=== PATIENT | male | born 1955 | race Caucasian/White ===

== ENCOUNTER 2024-10-03 08:18 | Emergency (ER) | payer OTHER, SELFPAY ==
[2024-10-03 08:29] VITALS: BP 136/64; PULSE 82; RESP 16; TEMP 36.5; O2SAT 98
--- NOTE | 2024-10-03 08:51 | ED.SKABFB ---
HPI - Skin/Abscess/Foreign Bdy General Chief complaint: Skin/Abscess/Foreign Body Stated complaint: lump in throat Time Seen by Provider: 10/03/24 08:40 Source: patient and RN notes reviewed Mode of arrival: ambulatory Limitations: no limitations History of Present Illness HPI narrative: 68-year-old male presents [facility] complaining redness and swelling to his neck. Patient please sent and bit him in his sleep. Patient reports having a pruritic rash to the lower part of his anterior neck. Patient has not taken anything to help with symptoms because he was not sure if it would react with any of his medications he currently takes. Patient has a history of hypertension and hyperlipidemia. Patient denies any throat swelling, face swelling, difficulty breathing, wheezing, difficulty clearing secretions, fevers, upper respiratory symptoms, nausea, vomiting, or any other symptoms. Related Data Home Medications ?Medication ?Instructions ?Recorded ?Confirmed ?Last Taken ?Type fluticasone propionate 50 intranasal 10/03/24 Unknown History mcg/actuation nasal spray,suspension lisinopril 20 mg tablet mg 10/03/24 Unknown History montelukast 10 mg tablet mg 10/03/24 Unknown History rosuvastatin 20 mg tablet mg 10/03/24 Unknown History tadalafil 20 mg tablet mg 10/03/24 Unknown History Allergies Allergy/AdvReac Type Severity Reaction Status Date / Time No Known Allergies Allergy Verified 10/03/24 08:21 Review of Systems Review of Systems: CONSTITUTIONAL: Denies fever, chills, or sweats. EYES: Denies visual changes, redness, or discharge. ENT: Denies rhinorrhea, congestion, sore throat, or otalgia. CARDIOVASCULAR: Denies chest pain, palpitations, or edema. RESPIRATORY: Denies cough or dyspnea. GASTROINTESTINAL: Denies abdominal pain, nausea, vomiting, or diarrhea. GENITOURINARY: Denies dysuria or hematuria. SKIN: Positive for rash and itching. MUSCULOSKELETAL: Denies back pain, joint pain, or myalgia. NEUROLOGIC: Denies headache, numbness, or weakness. PSYCHIATRIC: Denies anxiety or depression. All other systems reviewed are negative, except as documented in HPI. PMFSH Comments At the time of my signature, I reviewed and agree with the nursing past medical, surgical, social, and family history. There is no relevant family history pertinent to the patient complaint. Exam Narrative: GENERAL: This is a well-nourished, well-developed adult, in no apparent distress. They are non ill-appearing, nontoxic appearing. HEAD: normocephalic, atraumatic. EYES: Sclera clear/white. Conjunctiva normal. Vision is grossly intact. Extraocular movements intact EARS: External ears normal Hearing grossly intact. NOSE: External nose normal THROAT: Mucous membranes moist, posterior pharynx clear, without erythema or swelling. Uvula midline. NECK: Neck supple, non-tender without lymphadenopathy, masses or thyromegaly. CARDIOVASCULAR: Regular rate and rhythm without murmurs, gallops, or rubs. RESPIRATORY: Clear to auscultation. Breath sounds equal bilaterally. No wheezes, rales, or rhonchi. SKIN: There is a pruritic erythematous, macular rash with a center papule to the anterior lower neck. Surrounding erythema around the papule extending to the upper chest. There is no induration, area of fluctuance, exudate, or tenderness. NEURO: awake, alert, and oriented to person, place and time. There were no obvious focal neurologic abnormalities. EXTREMITIES: No joint tenderness, effusion, or edema noted. Course Course Emergency Course: Portions of this record may have been created with voice recognition software Level of Care: Express Care Visit Vital Signs Vital signs: Vital Signs Temperature 97.7 F 10/03/24 08:29 Pulse Rate 82 10/03/24 08:29 Respiratory Rate 16 10/03/24 08:29 Blood Pressure 136/64 10/03/24 08:29 Pulse Oximetry 98 10/03/24 08:29 Oxygen Delivery Room Air 10/03/24 08:29 Temperature 97.7 F 10/03/24 08:29 Pulse Rate 82 10/03/24 08:29 Respiratory Rate 16 10/03/24 08:29 Blood Pressure 136/64 10/03/24 08:29 Pulse Oximetry 98 10/03/24 08:29 Oxygen Delivery Room Air 10/03/24 08:29 Reviewed MDM - Skin/Abscess/Foreign Bdy MDM Narrative Medical decision making narrative: Likely patient has mild allergic reaction to an insect bite. Will prescribe triamcinolone cream and recommend [id number] therapy to help with symptoms. Discussed physical exam findings. Advised supportive measures and signs/symptoms to go to the ER. Pt is appropriate for outpt treatment and f/u. Differential Diagnosis Differential diagnosis: Likely urticaria, cellulitis, insect bites and contact dermatitis Critical Care Time Critical Care Time Critical Care Time: No Discharge Plan Discharge Clinical Impression: Allergic reaction to insect bite Insect bite Qualifiers: Encounter type: initial encounter Site of insect bite: unspecified part of neck Qualified Code(s): S10.96XA - Insect bite of unspecified part of neck, initial encounter Patient Disposition: Home Condition: Stable Instructions: Insect Bite or Sting (ED), General Allergic Reaction (ED) Additional Instructions: Please use the triamcinolone cream as directed. It Is likely you have and allergic reaction to a bug bite. Please wash the area with mild soap and water. May apply ice or cold packs to help with swelling 20 minutes at a time. You may also use calamine lotion to help with itchiness. Take Zyrtec and Pepcid daily to help with itching and allergy symptoms. You may take Benadryl at night. Follow-up with PCP in 3-5 days. If the swelling gets worse, skin becomes hot to touch or painful, you develop green or yellow discharge, fevers, breathing problems, or swelling to throat face, or any other concerns please go to the ER immediately. Patient Language: [place] Prescriptions: New triamcinolone acetonide 0.1 % cream 1 applic topical BID 5 Days Qty: 15 0RF No Action lisinopril 20 mg tablet montelukast 10 mg tablet fluticasone propionate 50 mcg/actuation spray,suspension INTRANASAL rosuvastatin 20 mg tablet tadalafil 20 mg tablet Follow-up/Referrals: Nick Wright MD [Primary Care Provider] - Time of Disposition: 08:50
== END 2024-10-03 08:55 | disposition home or self-care (01) ==
PROVIDERS: PCP Internal Medicine
DX: S10.96XA Insect bite of unspecified part of neck, initial encounter (principal); W57.XXXA Bitten or stung by nonvenomous insect and other nonvenomous arthropods, initial encounter; I10 Essential (primary) hypertension; E78.5 Hyperlipidemia, unspecified
CPT/HCPCS: 99203; G0463

== ENCOUNTER 2024-12-08 13:20 | Emergency (ER) | payer OTHER, SELFPAY ==
[2024-12-08 13:29] VITALS: BP 192/81; PULSE 91; RESP 16; TEMP 37.2; O2SAT 100
[2024-12-08 13:44] LABS: EDUAAPPEAR Clear; EDUABILI Negative (Negative); EDUABLOOD 1+ (Negative); EDUACOLOR1 Yellow; EDUAGLUCOSE Negative (Negative); EDUAKETONE Negative (Negative); EDUALEUKO Negative (Negative); EDUANITRATE Negative (Negative); EDUAPH 7.0; EDUAPROTEIN Negative (Negative); EDUASPGRAVITY 1.005; EDUAUROBILI 0.2
--- NOTE | 2024-12-08 14:00 | ED.MALEGU ---
HPI - Male Genitourinary General Chief complaint: Urogenital-Male Stated complaint: blood in urine Time Seen by Provider: 12/08/24 14:00 Source: patient, RN notes reviewed and old records reviewed Mode of arrival: ambulatory Limitations: no limitations History of Present Illness HPI Narrative: 69-year-old male presents to the [facility] with concerns of blood in his urine as well as a spot in his underwear. Happened 2 times today. Patient denies any history of prostate issues, kidney issues, STI's Denies any new back pain or abdominal pain. Denies fever Related Data Home Medications ?Medication ?Instructions ?Recorded ?Confirmed ?Last Taken ?Type fluticasone propionate 50 intranasal 10/03/24 Unknown History mcg/actuation nasal spray,suspension lisinopril 20 mg tablet mg 10/03/24 Unknown History montelukast 10 mg tablet mg 10/03/24 Unknown History rosuvastatin 20 mg tablet mg 10/03/24 Unknown History tadalafil 20 mg tablet mg 10/03/24 Unknown History Allergies Allergy/AdvReac Type Severity Reaction Status Date / Time No Known Allergies Allergy Verified 12/08/24 13:41 Review of Systems Review of Systems: All systems reviewed & are unremarkable except as noted in HPI and below Constitutional: Constitutional: Reports no additional constitutional complaints ENT: Reports system reviewed and no additional complaints, except as documented Cardiovascular: Cardiovascular: Reports no additional cardiovascular complaints, Denies chest pain and Denies dyspnea Respiratory: Respiratory: Reports no additional respiratory complaints, Denies chest congestion, Denies cough and Denies dyspnea Genitourinary: Genitourinary: Reports as per HPI Musculoskeletal: Musculoskeletal: Reports no additional musculoskeletal complaints Integumentary/Breasts: Skin/Breast: Reports system reviewed and no additional complaints, except as docu PMFSH Comments At the time of my signature, I reviewed and agree with the nursing past medical, surgical, social, and family history. There is no relevant family history pertinent to the patient complaint. Exam Const: General: cooperative, healthy appearing, comfortable, no acute distress, well developed, alert and well nourished Nutritional Appearance: well nourished Orientation/consciousness: patient oriented x3 Limitations: no limitations HENMT: Head: normal to inspection Mouth: Yes Normal oral and palatal mucosa present, Yes lip normal, Yes tongue normal and Yes moist mucous membranes Eyes: General: appearance normal, both eyes and all related structures Alignment and Position: alignment normal Neck: Neck: normal visual inspection, full ROM, no lymphadenopathy and no meningeal signs Chest: Chest palpation & inspection: normal inspection of the chest Resp: Effort & Inspection: normal respiratory effort and able to speak in complete sentences Auscultation: clear to auscultation bilaterally, no crackles, no rales, no rhonchi and no wheezes Cardio: Rate: regular rate Back/Spine/Pelvis: Back: No ecchymosis and No back tenderness Skin: General skin exam: normal color and no rashes or lesions noted Neuro: General: patient oriented x3, gait normal, moves all extremities and no meningeal signs Cognition (Neuro): normal cognition Speech: normal speech Gait exam (Neuro): Normal gait present Extrem: General: normal to inspection, full ROM, capillary refill normal and normal gait Psych: Appearance: grossly normal and well kempt Mental Status: mental status grossly normal Speech and movement: Normal speech and movement present and Clear speech present Affect: normal affect Attitude: cooperative Course Course Level of Care: Express Care Visit Vital Signs Vital signs: Vital Signs Temperature 99.0 F 12/08/24 13:29 Pulse Rate 91 12/08/24 13:29 Respiratory Rate 16 12/08/24 13:29 Blood Pressure 192/81 H 12/08/24 13:29 Pulse Oximetry 100 12/08/24 13:29 Oxygen Delivery Room Air 12/08/24 13:29 Temperature 99.0 F 12/08/24 13:29 Pulse Rate 91 12/08/24 13:29 Respiratory Rate 16 12/08/24 13:29 Blood Pressure 192/81 H 12/08/24 13:29 Pulse Oximetry 100 12/08/24 13:29 Oxygen Delivery Room Air 12/08/24 13:29 Reviewed MDM - Male Genitourinary MDM Narrative Medical decision making narrative: Patient sitting in exam room. Patient is nontoxic, vitals are stable except blood pressure elevated. Patient does take medication for blood pressure. Patient presents with 1 week history of noticing a spot of blood in his underwear, 2 episodes of noticing blood earlier. Currently urine had a +1 blood in the urine, no other positives in the urine dip Patient denies any history of bladder issues, prostate issues. Denies any history is of kidney stones or kidney issues Discussed this with patient, stressed the importance of following up which he verbalized understanding for further testing and treatment. Differential Diagnosis Differential diagnosis: Likely urinary tract infection, urethritis and other (Prostate issues, prostatitis, kidney stone, bladder cancer) Lab Data Labs: Lab Results 12/08/24 Range/Units 13:36 POC Urine Color Yellow POC Urine Clarity Clear POC Urine pH 7.0 POC Ur Specif [place] 1.005 POC Urine Protein Negative (Negative) POC Ur Glucose (UA) Negative (Negative) POC Urine Ketones Negative (Negative) POC Urine Blood 1+ (Negative) POC Urine Nitrite Negative (Negative) POC Urine Bilirubin Negative (Negative) POC Urine Urobilinogen 0.2 POC U Leukocyte Esteras Negative (Negative) Reviewed Critical Care Time Critical Care Time Critical Care Time: No Discharge Plan Discharge Clinical Impression: Hematuria Qualifiers: Hematuria type: unspecified type Qualified Code(s): R31.9 - Hematuria, unspecified Patient Disposition: Home Condition: Stable Instructions: Hematuria (ED) Additional Instructions: Today your blood pressure was 192/81. Is highly recommended you follow-up with your primary care provider to have this rechecked within 1 week. Today your urine did not show signs of a UTI. You did have blood in her urine and it is strongly recommended that you do follow-up with your primary care provider for further evaluation, testing and treatment. If your symptoms get worse please proceed to the emergency room for further evaluation, testing and treatment Patient Language: [place] Prescriptions: No Action lisinopril 20 mg tablet montelukast 10 mg tablet fluticasone propionate 50 mcg/actuation spray,suspension INTRANASAL rosuvastatin 20 mg tablet tadalafil 20 mg tablet triamcinolone acetonide 0.1 % cream 1 applic topical BID 5 Days Qty: 15 0RF Follow-up/Referrals: Nick Wright MD [Primary Care Provider, Hospitalist] Time of Disposition: 14:11
== END 2024-12-08 14:20 | disposition home or self-care (01) ==
PROVIDERS: Emergency Provider Nurse Practitioner; PCP Internal Medicine
DX: R31.9 Hematuria, unspecified (principal)
CPT/HCPCS: 81003; 87086; 99213; G0463